=== PATIENT | female | born 1935 | race Caucasian/White ===

== ENCOUNTER 2023-11-09 07:26 | Outpatient (RCR) | payer MEDICARE, SELFPAY ==
[2023-10-26 10:15] VITALS: BMI 26.9
== END 2023-12-23 12:57 | disposition home or self-care (01) ==
LOC: ANHWOC 07:26
PROVIDERS: PCP Physician Assistant Medical; Visit Provider Physician Assistant Medical
DX: L97.929 Non-pressure chronic ulcer of unspecified part of left lower leg with unspecified severity (principal); L03.116 Cellulitis of left lower limb
CPT/HCPCS: 99213; 99214; G0463

== ENCOUNTER 2024-07-19 15:13 | Outpatient (CLI) | payer MEDICARE, SELFPAY ==
[2024-07-19 15:59] LABS: Hematocrit 25.6 % (37.0-47.0); Hemoglobin 7.9 g/dL (12.0-15.0); Mean Corpuscular HGB Conc 30.9 g/dl (32-36); Mean Corpuscular Hemoglobin 31.2 pg (26-34); Mean Corpuscular Volume 101.2 fl (80-100); Mean Platelet Volume 11.2 fl (7.4-10.4); Platelet Count Result 177 k/mm3 (150-375); Red Blood Count 2.53 M/mm3 (4.2-5.4); Red Cell Distribution Width 19.6 % (11.5-14.5); White Blood Count 6.1 K/mm3 (4.5-10.0)
[2024-07-19 16:21] LABS: INR 1.7; Prothrombin Time 19.4 Seconds (11.1-14.7)
[2024-07-19 16:27] LABS: Alanine Aminotransferase 21 U/L (6-35); Albumin Level 2.4 g/dL (3.5-5.1); Alkaline Phosphatase 342 U/L (38-126); Anion Gap 8 mmol/L (4-12); Aspartate Amino Transferase 49 U/L (14-36); Bilirubin,Total 0.9 mg/dL (0.2-1.3); Blood Urea Nitrogen 25 mg/dL (7-17); Calcium 8.3 mg/dL (8.4-10.2); Carbon Dioxide 15 mmol/L (22-30); Chloride 118 mmol/L (98-107); Estimated Glomerular Filt Rate 20; Glucose 92 mg/dL (65-110); Potassium 4.4 mmol/L (3.4-5.0); Sodium 141 mmol/L (137-145); Total Protein 7.6 g/dL (6.3-8.2)
--- OUTSIDE RECORDS SUMMARY | 2024-07-19 16:40 | XMS_ITS | Clinical Summary ---
Author Organization [facility] Address [address] [place] [address] Care Team Providers Care Chef De Cuisine Name Role Phone Vannessa Swann Primary Care Provider [phone] Source Comments [facility],non-owned Affiliates and Associated Physician Practices is amultiple site organization consisting of ambulatory clinics and hospital sitesin [place], [place], [place] and [place]. This disclosure is being madepursuant to the Care Everywhere program and may not contain all information available regarding this patient. Last updated 17.[facility] Allergies Active Allergy Reactions Criticality Noted Date Comments Lisinopril Cough 12/15/2023 Medications * Be aware that medications may not be up to date on this document. Alwaysverify current medications with the patient. furosemide (Lasix) 80 MG tablet TAKE 1 TABLET(80 MG) BY MOUTH DAILY 09/09/2021 Active potassium chloride ER (Micro-K) 10 MEQ capsule Take 2 (two) capsules by mouth 2 times daily 12/09/2021 Active losartan (Cozaar) 25 MG tablet Take 1 (one) tablet by mouth once daily Active pantoprazole EC (Protonix) 40 MG tablet Take 1 (one) tablet by mouth every morning 06/02/2022 Active ferrous sulfate 325 (65 FE) MG tablet Take 1 (one) tablet by mouth once daily 02/09/2022 Active Aspirin Low Dose 81 MG tablet Take 1 (one) tablet by mouth once daily 05/06/2022 Active predniSONE (Deltasone) 10 MG tablet TAKE 1 TABLET BY MOUTH DAILY NEEDED FOR ALLERGY SYMPTOMS 10/25/2021 Active Probiotic Product (Acidophilus/Go at Milk) CAPS Take 1 capsule by mouth once daily Active cetirizine (ZyrTEC) 10 MG tablet Take 1 (one) tablet by mouth once daily Active alendronate (Fosamax) 70 MG tablet Take 1 (one) tablet by mouth every 7 days before meal Take in morning with full glass of water on empty stomach and remain upright for 30 min Active sotalol (Betapace) 80 MG tablet Take 0.5 (one-half) tablet by mouth 2 times daily Active calcium carbonate-vitam in D 600-400 MG-UNIT tablet Take 1 (one) tablet by mouth 2 times daily with morning and evening meal Active Active Problems Problem Noted Date Diagnosed Date GIB (gastrointestinal bleeding) 02/06/2022 07/17/2022 Leg edema 08/05/2021 07/17/2022 Atrial fibrillation with rapid ventricular respo nse 07/01/2021 07/17/2022 Family History Medical History Relation Name Comments Heart Failure Mother Relation Name Status Comments Father Mother Social History Tobacco Use Types Packs/Day Years Used Date Smoking Tobacco: Never Smokeless Tobacco: Never Tobacco Cessation:Counseling Given: Not Answered Alcohol Use Standard Drinks/Week Comments Never 0 (1 standard drink = 0.6 oz pur e alcohol) Comments Unknown Sex and Gender Information Value Date Recorded Sex Assigned at Not on file Legal Sex Female 8:35 AM CDT Gender Identity Not on file Sexual Orientation Not on file Last Filed Vital Signs Vital Sign Reading Time Taken Comments Blood Pressure 128/90 12/15/2023 11:15 AM COMMUNICATIONS SUPERVISOR Pulse 81 12/15/2023 11:15 AM COMMUNICATIONS SUPERVISOR Temperature 35.9 C (96.7 F) 07/17/2022 11:31 AM CDT Respiratory Rate 18 07/17/2022 11:3 1 AM CDT Oxygen Saturation 100% 12/15/2023 11: 15 AM COMMUNICATIONS SUPERVISOR Inhaled Oxygen Concentration - - Weight 64.8 kg (142 lb 12.8 oz) 024 11:15 AM COMMUNICATIONS SUPERVISOR Height 154.9 cm (5' 1) 07/17/2022 11:3 1 AM CDT Body Mass Index 26.98 07/17/2022 11:31 AM CDT Plan of Treatment Upcoming Encounters Date Type Department Care Team (Late st Contact Info) Description 12/13/2024 11:00 AM COMMUNICATIONS SUPERVISOR [facility] [place] [address] [facility] [place] [address] Suresh Mendez MD [address] [place] [address] Health Maintenance Due Date Last Done Comments MEDICARE AWV 12 MONTHS 1935 DTAP/TDAP/TD VACCINES (1 - Tdap) 1954 PNEUMOCOCCAL VACCINE 50+ (1 of 1 - PCV) 1985 ZOSTER VACCINE (1 of 2) 1985 Respiratory Syncytial Virus (RSV) Vaccine Pt: or over 60 yrs (1 - 1-dose 75+ series) 2010 COVID-19 VACCINE ( - 2023-2 5 season) 2023 DEPRESSION SCREENING 02/10/2024 INFLUENZA VACCINE (Season Ended) 2024 BONE DENSITY TESTING Completed 08/25/2023, 05/22/2022 HEPATITIS B VACCINE Aged Out No longe r eligible based on patient's age to complete this topic HIB VACCINE Aged Out No longer eligi ble based on patient's age to complete this topic HPV VACCINE Aged Out No longer eligi ble based on patient's age to complete this topic MENINGOCOCCAL (Group B) VACCINE SHARED DECISION-MAKING Aged Out No longer eligible based on patient's age to complete this topic MENINGOCOCCAL GROUPS A/C/Y/W VACCINE Aged Out No longer eligible b ased on patient's age to complete this topic Goals Goal Patient Goal Type Associated Problems Recent Progress Patient-Stated? Author Medication Management General On track( 024 11:15 AM COMMUNICATIONS SUPERVISOR) Tran Galvez, RN Note: Expected end date: ongoing Interventions: Take all medications as prescribed Let your doctor know right away about any changes in your medications Make sure to request a refill of your medication at least one week prior to your last dose Insurance MEDICARE AETNA MEDICARE AETNA Care Teams Chef De Cuisine Relationship Specialty Start Date End Date Vannessa Swann PA [address] [place] [phone] PCP - General Physician Electroless Plater 07/17/22
--- OUTSIDE RECORDS SUMMARY | 2024-07-19 16:40 | XMS_ITS | Clinical Summary ---
Author Organization [facility] Address [address] [facility] [place] [address] Care Team Providers Care Clinical Trial Coordinator Name Role Phone Unavailable Primary Care Provider Unavailabl e Social History Tobacco Use Types Packs/Day Years Used Date Smoking Tobacco: Never Assessed Comments Unknown Sex and Gender Information Value Date Recorded Sex Assigned at Not on file Legal Sex Female 3:12 PM CDT Gender Identity Not on file Sexual Orientation Not on file Plan of Treatment Upcoming Encounters Date Type Department Care Team (Late st Contact Info) Description 07/26/2024 4:00 PM CDT Office Visit [facility] Oncology and Hematology - [place] [address] [facility] [address] [address] Daljit King MD [address] [facility] [address] [place] [address] Health Maintenance Due Date Last Done Comments DTAP/TDAP/TD VACCINES (1 - Tdap) 1954 PNEUMOCOCCAL VACCINE 50+ YEARS (1 of 1 - PCV) 01/12/19 85 ZOSTER VACCINE (1 of 2) 1985 OSTEOPOROSIS SCREENING 01/13/2000 RSV VACCINE (60+ or ) (1 - 1-dose 75+ series) 2010 INFLUENZA VACCINE (#1) 2023 Insurance MEDICARE PART A AND B AETNA MEDICARE SUPP AESSI
[2024-07-19 16:50] LABS: Iron 92 ug/dL (37-170)
[2024-07-19 17:09] LABS: Percent Iron Saturation 54 % (20-50)
[2024-07-19 17:24] LABS: Hepatitis B Surface Antigen Negative (Negative)
[2024-07-19 17:30] LABS: HAV RESULT Negative (Negative); Hepatitis B Core IgM Result Negative (Negative)
[2024-07-19 17:30] LABS: Total Protein Urine Random 8 mg/dL
[2024-07-19 17:41] LABS: Hepatitis C Virus Antibody Negative (Negative)
[2024-07-20 05:44] LABS: GGT 63 U/L (3-65)
[2024-07-20 22:04] LABS: Ceruloplasmin 21 mg/dL (14-48)
[2024-07-22 12:29] LABS: Anti Nuclear Antibody Pattern Nuclear, Speckled
== END 2024-07-19 15:14 | disposition home or self-care (01) ==
LOC: ANHLAB 15:16
PROVIDERS: PCP Physician Assistant Medical; Visit Provider Nurse Practitioner Family
DX: R74.8 Abnormal levels of other serum enzymes (principal); K74.00 Hepatic fibrosis, unspecified; E88.09 Other disorders of plasma-protein metabolism, not elsewhere classified; K74.60 Unspecified cirrhosis of liver
CPT/HCPCS: 36415; 80053; 80074; 81050; 82390; 82728; 82977; 83520; 83540; 83550; 84156; 85027; 85610; 86038; 86364; 86376

== ENCOUNTER 2024-07-28 08:31 | Inpatient (IN) | payer MEDICARE, SELFPAY ==
[2024-07-28] VITALS (9 sets, daily range): BP systolic 63–95; BP diastolic 28–68; PULSE 41–51; RESP 12–22; TEMP 33.1–34.6; O2SAT 90–95; BMI 30.4
--- NOTE | ~2024-07-28 | XR_ITS ---
XR chest 1V portable Ordering provider: Antelmo Dubon III DO History: 89 years Female with . cough . Comparison: None. FINDINGS: MEDIASTINUM: The cardiac silhouette is slightly enlarged. Congestive jazmine. LUNGS: No pneumothorax. Opacification and the right lower lobe with right pleural effusion. OTHER: No free air under the diaphragm. IMPRESSION: Right basilar atelectasis versus pneumonia with pleural effusion. Reviewed, dictated and finalized at location A.
--- NOTE | ~2024-07-28 | CT_ITS ---
Clinical Indication: Acute renal insufficiency, UTI CT Scan of the Chest, Abdomen, and Pelvis without Contrast: Technique: Contiguous sections were acquired throughout the chest, abdomen, and pelvis without IV con trast administration. Dose reduction technique was used on this scan by utilizing automated exposure control and iterative reconstruction technique. The dose-length product (DLP) was 1252.53 mGy-cm. Findings: There is no evidence of any significant mediastinal, hilar or axillary lymphadenopathy. Left atrial a ppendage closure device present. No pericardial effusion. Moderate to large right pleural effusion present with near complete right lower lobe atelectasis. Und erlying pneumonia not completely excluded. Left lung clear aside from minimal dependent atelectatic c hanges. No left pleural effusion. The liver is small with severely nodular contour/morphology, compatible with advanced cirrhosis. No f ocal hepatic mass or ventricular dilatation seen. Probable cholecystectomy clips. The spleen, pancrea s, gallbladder, right adrenal gland, and kidneys are within normal limits. Probable 11 mm left adrena l nodule, statistically most likely adenoma. No evidence of aortic aneurysm. No lymphadenopathy. No bowel obstruction or bowel wall thickening. Moderate abdominopelvic ascites present. Urinary bladder is collapsed around a Simental catheter. No pelvic mass evident. Diffuse soft tissue davin sarca changes are present. Impression: Moderate to large right pleural effusion with near complete right lower lobe atelectasis. Correlate f or concomitant pneumonia. Advanced cirrhotic change of the liver. Associated moderate abdominopelvic ascites and diffuse soft t issue anasarca changes. 11 mm left adrenal nodule, statistically most likely adenoma. Consider follow-up MR to attempt to con firm this diagnosis, as indicated. Reviewed, dictated and finalized at location . Impression: Moderate to large right pleural effusion with near complete right lower lobe at electasis. Correlate for concomitant pneumonia. Advanced cirrhotic change of the liver. Associated moderate abdominopelvic asci jackson and diffuse soft tissue anasarca changes. 11 mm left adrenal nodule, statistically most likely adenoma. Consider follow-u p MR to attempt to confirm this diagnosis, as indicated.
--- NOTE | ~2024-07-28 | CT_ITS ---
CT brain wo con Ordering provider: Antelmo Dubon III DO History: 89 years Female with . altered mental status . Comparison: None. Technique: CT of the head without contrast. Radiation reduction technique utilized.The dose-length pr oduct was 529.67 mGy-cm. FINDINGS: BRAIN PARENCHYMA AND CSF SPACES: Mild leukoaraiosis and diffuse cortical atrophy. Mild atheromatous d isease. No midline shift, mass effect or hemorrhage. The brain parenchyma and CSF spaces are otherwi se normal. VISUALIZED PARANASAL SINUSES: Well aerated. MASTOIDS: Well aerated. BONES: The bones appear intact. SOFT TISSUES: Visualized nasopharynx is normal. Superficial soft tissues are normal. IMPRESSION: No acute intracranial findings. Reviewed, dictated and finalized at location A.
--- OUTSIDE RECORDS SUMMARY | 2024-07-28 08:42 | XMS_ITS | Clinical Summary ---
Author Organization [facility] Address [address] [facility] [place] [address] Care Team Providers Care Seo Strategist Name Role Phone Unavailable Primary Care Provider Unavailabl e Allergies Active Allergy Reactions Criticality Noted Date Comments Lisinopril Cough Low 05/02/2022 Medications sucralfate (CARAFATE) 1 gram tablet 07/21/2024 Active sotaloL (BETAPACE) 80 mg tablet TAKE 1/2 TABLET(40 MG) BY MOUTH TWICE DAILY 04/25/2024 Active phenyleph-min oil-petrolatum (Preparation H) 0.25-14-74.9 % Ointment Insert by rectum 3 times daily as needed for Itching. Active potassium CHLORIDE (K-DUR,KLOR-CON M20) 20 mEq Extended Release tablet 07/21/2024 Active pantoprazole (PROTONIX) 40 mg Tablet, Delayed Release (E.C.) Take 40 mg by mouth daily. 02/09/2022 Active lactulose (ENULOSE) 10 gram/15 mL oral solution 07/21/2024 Active furosemide (LASIX) 20 mg tablet 07/21/2024 Active ferrous sulfate 325 mg (65 mg iron) tablet Take 325 mg by mouth daily. 02/09/2022 Active cetirizine (ZyrTEC) 10 mg tablet Take 10 mg by mouth daily. Active calcium CARBONATE + vitamin D (CALTRATE+D) 600 mg-10 mcg (400 unit) Tablet Take 1 Tablet by mouth daily. Active alendronate (FOSAMAX) 70 mg tablet Take 70 mg by mouth every 7 days. 05/28/2023 Active Active Problems No known active problems Encounters Date Type Department Care Team Description 07/26/2024 4:00 PM CDT Office Visit [facility] Oncology and Hematology - [place] [address] [place] [address] Daljit King MD Chronic anemia (Primary Dx) from Last 3 Months Family History Medical History Relation Name Comments No Known Problems Brother Diabetes Child 1 Heart Disease Child 1 No Known Problems Child 2 No Known Problems Child 3 Heart Disease Father Cancer Mother Diabetes Mother Heart Disease Mother Relation Name Status Comments Brother Child 1 Alive Child 2 Alive Child 3 Alive Father Mother Social History Tobacco Use Types Packs/Day Years Used Date Smoking Tobacco: Never Smokeless Tobacco: Never Alcohol Use Standard Drinks/Week Comments Never 0 (1 standard drink = 0.6 oz pur e alcohol) Comments Unknown Sex and Gender Information Value Date Recorded Sex Assigned at Not on file Legal Sex Female 3:12 PM CDT Gender Identity Not on file Sexual Orientation Not on file Last Filed Vital Signs Vital Sign Reading Time Taken Comments Blood Pressure 95/54 07/26/2024 3:43 PM CDT Pulse 50 07/26/2024 3:43 PM CDT Temperature 36 C (96.8 F) 07/26/2024 3:43 PM CDT Respiratory Rate 15 07/26/2024 3:43 PM CDT Oxygen Saturation 83% 07/26/2024 3:43 PM CDT Inhaled Oxygen Concentration - - Weight 72.7 kg (160 lb 3.2 oz) 07/26/2024 3:43 P M CDT Height 154.9 cm (5' 1) 07/26/2024 3:43 PM CDT Body Mass Index 30.27 07/26/2024 3:43 PM CDT Plan of Treatment Upcoming Encounters Date Type Department Care Team (Late st Contact Info) Description 08/31/2024 2:00 PM CDT Office Visit [facility] Oncology and Hematology - [place] [address] [place] [address] Daljit King MD [address] [facility] [address] [place] [address] Health Maintenance Due Date Last Done Comments DTAP/TDAP/TD VACCINES (1 - Tdap) 1954 Traditional Medicare (ACO) A nnual Wellness Visit 1954 PNEUMOCOCCAL VACCINE 50+ YEA RS (1 of 1 - PCV) 1985 ZOSTER VACCINE (1 of 2) 1985 RSV VACCINE (60+ or ) (1 - 1-dose 75+ series) 2010 INFLUENZA VACCINE (#1) 2023 OSTEOPOROSIS SCREENING 08/24/2028 08/25/2023, 2022 Insurance MEDICARE PART A AND B AETNA MEDICARE SUPP AESSI
--- OUTSIDE RECORDS SUMMARY | 2024-07-28 08:42 | XMS_ITS | Clinical Summary ---
Author Organization [facility] Address [address] [facility] [place] [address] Care Team Providers Care Shoe Stitcher Odd Name Role Phone Vannessa Swann Primary Care Provider [phone] Source Comments [facility],non-owned Affiliates and Associated Physician Practices is amultiple site organization consisting of ambulatory clinics and hospital sitesin [place], [place], [place] and [place]. This disclosure is being madepursuant to the Care Everywhere program and may not contain all information available regarding this patient. Last updated 17.[facility] Allergies Active Allergy Reactions Criticality Noted Date [...] Comments Blood Pressure 128/90 12/15/2023 11:15 AM CANAL TENDER Pulse 81 12/15/2023 11:15 AM CANAL TENDER Temperature 35.9 C (96.7 F) 07/17/2022 11:31 AM CDT Respiratory Rate 18 07/17/2022 11:3 1 AM CDT Oxygen Saturation 100% 12/15/2023 11: 15 AM CANAL TENDER Inhaled Oxygen Concentration - - Weight 64.8 kg (142 lb 12.8 oz) 024 11:15 AM CANAL TENDER Height 154.9 cm (5' 1) 07/17/2022 11:3 1 AM CDT Body Mass Index 26.98 07/17/2022 11:31 AM CDT Plan of Treatment Upcoming Encounters Date Type Department Care Team (Late st Contact Info) Description 12/13/2024 11:00 AM CANAL TENDER Office Visit [facility] [place] [address] [facility] [place] [address] Suresh Mendez MD [address] [place] [address] Health Maintenance Due Date Last Done Comments [...] Management General On track( 024 11:15 AM CANAL TENDER) Tran Galvez, RN Note: Expected end date: ongoing Interventions: Take all medications as prescribed Let your doctor know right away about any changes in your medications Make sure to request a refill of your medication at least one week prior to your last dose Insurance MEDICARE AETNA MEDICARE AETNA Care Teams Shoe Stitcher Odd Relationship Specialty Start Date End Date Vannessa Swann PA [address] [place] [phone] PCP - General Physician Restorative Rehab Aide 07/17/22
--- NOTE | 2024-07-28 08:52 | ECG_ITS ---
Test Date: 2024-07-28 09:18:34 Measurements Intervals [place] Rate: 41 P: 52 ND: 197 QRS: 77 QRSD: 153 T: 10 QT: 548 QTc: 453 Interpretive Statements SINUS BRADYCARDIA BORDERLINE AV CONDUCTION DELAY RIGHT BUNDLE BRANCH BLOCK LOW VOLTAGE IN DIFFUSE LEADS BASELINE ARTIFACT- I, II, III, AVR, AVF, V1 ABNORMAL ECG No previous ECG available for comparison Electronically Signed On 07-28-2024 09:31:03 CDT by César Ordaz D.O.
--- OUTSIDE RECORDS SUMMARY | 2024-07-28 09:06 | XMS_ITS | Clinical Summary ---
Author Organization [facility]arnell Address [address] [facility] [place] [address] Care Team Providers Care Examiner Of Currency Name Role Phone Unavailable Primary Care Provider [...] Description 07/26/2024 4:00 PM CDT Office Visit [facility] Oncology and Hematology - [place] [address] [place] [address] Daljit King MD Chronic anemia [...] Description 08/31/2024 2:00 PM CDT Office Visit [facility] Oncology and Hematology - [place] [address] [facility] [address] [place] [address] Daljit King MD [address] [facility] [address] [place] [address] Health Maintenance Due Date Last [...]
--- OUTSIDE RECORDS SUMMARY | 2024-07-28 09:06 | XMS_ITS | Clinical Summary ---
Author Organization [facility] Address [address] [facility] [place] [address] Care Team Providers Care Senior Software Project Manager Name Role Phone Vannessa Swann Primary Care Provider [phone] Source Comments [facility],non-owned Affiliates and Associated Physician Practices is amultiple site organization consisting of ambulatory clinics and hospital sitesin [place], [place], [place] and [place]. This disclosure is being madepursuant to the Care Everywhere program and may not contain all information available regarding this patient. Last updated 17.[facility] Allergies Active Allergy Reactions Criticality Noted Date [...] Comments Blood Pressure 128/90 12/15/2023 11:15 AM COGNOS LEAD Pulse 81 12/15/2023 11:15 AM COGNOS LEAD Temperature 35.9 C (96.7 F) 07/17/2022 11:31 AM CDT Respiratory Rate 18 07/17/2022 11:3 1 AM CDT Oxygen Saturation 100% 12/15/2023 11: 15 AM COGNOS LEAD Inhaled Oxygen Concentration - - Weight 64.8 kg (142 lb 12.8 oz) 024 11:15 AM COGNOS LEAD Height 154.9 cm (5' 1) 07/17/2022 11:3 1 AM CDT Body Mass Index 26.98 07/17/2022 11:31 AM CDT Plan of Treatment Upcoming Encounters Date Type Department Care Team (Late st Contact Info) Description 12/13/2024 11:00 AM COGNOS LEAD Office Visit [facility] [place] [address] [facility] [place] [address] Suresh Mendez MD [address] [place] [phone] Health Maintenance Due Date Last Done Comments [...] Management General On track( 024 11:15 AM COGNOS LEAD) Tran Galvez, RN Note: Expected end date: ongoing Interventions: Take all medications as prescribed Let your doctor know right away about any changes in your medications Make sure to request a refill of your medication at least one week prior to your last dose Insurance MEDICARE AETNA MEDICARE AETNA Care Teams Senior Software Project Manager Relationship Specialty Start Date End Date Vannessa Swann PA [address] [place] [phone] PCP - General Physician Concrete Spreader 07/17/22
--- NOTE | 2024-07-28 09:29 | ED_ITS ---
HPI - General Adult General Chief complaint: Unspecified Stated complaint: ABNORMAL LABS,CONFUSION Time Seen by Provider: 07/28/24 08:41 History of Present Illness HPI narrative: Pt presents with edema to legs and confusion per daughter. Pt had similar episode two weeks ago and was admitted in [facility]. Daughter states she has non alcoholic liver disease and her kidney function has been worsening. Pt has gained 25 lbs due to fluid retentin in abdomen and legs. Daughter said they were to get outpatient CT abd today but her didney function would not allow contrast so they were sent back to assisted living but pt became confused in car so daughter brought her to ER. Related Data Home Medications ?Medication ?Instructions ?Recorded ?Confirmed ?Last Taken ?Type cetirizine 10 mg tablet (Zyrtec) 10 mg PO DAILY PRN Allergy Symptoms 10/25/21 07/19/24 Unknown History sotalol 80 mg tablet (Betapace) 40 mg PO BID 10/25/21 07/19/24 Unknown History calcium 600 mg (as 1 cap PO BID 09/07/23 07/19/24 Unknown History carbonate)-vitamin D3 10 mcg (400 unit) capsule Allergies Allergy/AdvReac Type Severity Reaction Status Date / Time lisinopril AdvReac Intermediate cough Verified 07/28/24 08:38 Review of Systems 2 Review of Systems: All systems reviewed & are unremarkable except as noted in HPI and below PMFSH Past Medical History Medical History Hepatic encephalopathy Thrombocytopenia Rectal bleeding History of arteriovenous malformation (AVM) AVM (arteriovenous malformation) Iron deficiency anemia GAVE (gastric antral vascular ectasia) Abdominal distension Hypoalbuminemia Hepatic fibrosis GERD (gastroesophageal reflux disease) Osteoporosis Chronic heart failure with preserved ejection fraction (HFpEF) 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 Mild aortic stenosis Paroxysmal A-fib HTN (hypertension) Elevated liver enzymes Surgical History Surgical History History of appendectomy History of surgery of liver History of total hysterectomy with bilateral salpingo-oophorectomy (BSO) History of left atrial appendage closure 05/06/22 Family History Family History Mother Cerebrovascular accident Family history of malignant neoplasm of breast in first degree relative Father Acute myocardial infarction Other Diabetes mellitus Hypertension Social History Social History Social History: 04/15/24 somewhat confident with medical forms Smoking status: Never smoker Alcohol intake: never Substance use: never Substance use type: does not use Do You Feel Safe in your Home?: Yes Lack of Transportation: No Lack of Food: Never True Current Housing: I Have Housing Concerned About Future Housing: No Difficulty Paying Gas/Electric Bills: No Difficulty Paying for Meds: No Currently Unemployed: No Education: High School Diploma/GED Difficulty w/ Childcare or Family Care: No Living arrangements: alone Occupation/Education: retired Gender identity (if verbalized by the patient): Female Sexual Orientation (if Verbalized by the Patient): Straight or Heterosexual Spiritual care concerns: No Exam 2 Const: General: cooperative, healthy appearing, comfortable and no acute distress Nutritional Appearance: average body habitus O rientation/consciousness: patient oriented x3 Limitations: no limitations HENMT: Head: normal to inspection Neck: Neck: normal visual inspection, full ROM, no lymphadenopathy and no meningeal signs Resp: Effort & Inspection: normal respiratory effort and able to speak in complete sentences Auscultation: clear to auscultation bilaterally Cardio: Rate: regular rate Rhythm: regular rhythm GI: Inspection: Abdominal wall edema and distended GI Palp: No abdominal tenderness and No Tenderness to palpation present (GI) Skin: Other: edematous bilaterla LE with weeping wounds Neuro: General: patient oriented x3 Cranial nerves: Yes CN's II-XII intact bilaterally Speech: normal speech Motor exam (neuro): 5/5 motor strength present throughout Sensory Exam: normal sensation Extrem: General: edema Psych: Appearance: grossly normal Mental Status: mental status grossly normal Speech and movement: Normal speech and movement present Course Vital Signs Vital signs: Vital Signs Temperature 91.5 F L 07/28/24 09:07 Pulse Rate 41 L 07/28/24 09:07 Respiratory Rate 12 07/28/24 09:07 Blood Pressure 95/68 L 07/28/24 09:07 Pulse Oximetry 90 07/28/24 09:07 Temperature 93.2 F L 07/28/24 14:00 Pulse Rate 47 L 07/28/24 14:00 Respiratory Rate 22 H 07/28/24 14:00 Blood Pressure 63/42 L 07/28/24 14:00 Pulse Oximetry 95 07/28/24 11:45 Oxygen Delivery Nasal Cannula 07/28/24 09:08 Oxygen Flow Rate 4 07/28/24 09:08 Medical Decision Making MDM Narrative Medical decision making narrative: Pt presents with altered mental status this morning. Pt has complex recent medical history with liver disease and renal failure. Pt is grossly edematous to legs and abdomen and is hypothermic. Pt could be septic or in liver or kidney failure or all of the above. will get labs and UA and CT brain. and place in [facility] for temp. Pt HR dropped tpo 30's and then 20's and BP dropped. CMP resul;ts caled and K was 7.1. Pt immediately received Calcium, bicarb, insulin and d50 and HR climbed to 49 and Bp improved to SBP 95. UA positive ordered rocephin. contacted Dr Gomez agrees to admit to ICU. Dr Barreto consulted. Dr Paris notified of admission. Vital Signs Vital Signs: Vital Signs Temperature 91.5 F L 07/28/24 09:07 Pulse Rate 41 L 07/28/24 09:07 Respiratory Rate 12 07/28/24 09:07 Blood Pressure 95/68 L 07/28/24 09:07 Pulse Oximetry 90 07/28/24 09:07 Temperature 93.2 F L 07/28/24 14:00 Pulse Rate 47 L 07/28/24 14:00 Respiratory Rate 22 H 07/28/24 14:00 Blood Pressure 63/42 L 07/28/24 14:00 Pulse Oximetry 95 07/28/24 11:45 Oxygen Delivery Nasal Cannula 07/28/24 09:08 Oxygen Flow Rate 4 07/28/24 09:08 Lab Data 07/28/24 10:16 07/28/24 12:41 Labs: Lab Results 07/28/24 07/28/24 07/28/24 Range/Units 09:17 09:47 10:16 WBC 6.1 (4.5-10.0) K/mm3 RBC 2.31 L (4.2-5.4) M/mm3 Hgb 7.1 L (12.0-15.0) g/dL Hct 23.8 L (37.0-47.0) % MCV 103.0 H (80-100) fl MCH 30.7 (26-34) pg MCHC 29.8 L (32-36) g/dl RDW 21.2 H (11.5-14.5) % Plt Count 94 L (150-375) k/mm3 MPV 11.9 H (7.4-10.4) fl Immature Gran % (Auto) 1.2 H (0-0.5) % Neut % (Auto) 77.8 H (45.5-73.1) % Lymph % (Auto) 13.2 L (18.3-44.2) % [place] % (Auto) 7.6 (2.6-8.5) % Eos % (Auto) 0.2 (0-4.4) % Baso % (Auto) 0.0 L (0.2-1.2) % Lymph # (Auto) 0.80 L (0.9-3.2) K/mm3 [place] # (Auto) 0.5 (0.1-0.6) K/mm3 Eos # (Auto) 0.0 (0-0.3) K/mm3 Baso # (Auto) 0.0 (0.0-0.1) K/mm3 Abs Immat Gran (auto) 0.07 H (0.00-0.031) K/mm3 Absolute Neuts (auto) 4.7 (1.3-6.7) K/mm3 Absolute Nucleated RBC 0.450 H (0.0-0.012) K/mm3 Band Neutrophils % Not Reportable Nucleated RBC % 7.4 H (0.0-0.2) % Platelet Estimate Decreased (Adequate) % Immature Plt Fraction 4.9 (0.9-11.2) % Hypochromasia 1+ Anisocytosis 1+ Macrocytosis 1+ (NORMAL) Ovalocytes 1+ Schistocytes None seen PT 22.3 H (11.1-14.7) Seconds INR 2.0 APTT 43.3 H (22.3-36.8) Seconds Sodium 136 L (137-145) mmol/L Potassium 7.1 H* (3.4-5.0) mmol/L Chloride 121 H (98-107) mmol/L Carbon Dioxide < 5 L (22-30) mmol/L Anion Gap (4-12) mmol/L BUN 40 H D (7-17) mg/dL Creatinine 4.67 H (0.7-1.0) mg/dL Estim Creat Clear Calc 7 ml/min Estimated GFR 9 L (59 - ) Glucose 86 (65-110) mg/dL POC Capillary Glucose 77 (65-105) mg/dl Lactic Acid 3.0 H (0.7-2.0) mmol/L Calcium 8.0 L (8.4-10.2) mg/dL Total Bilirubin 1.3 (0.2-1.3) mg/dL AST 67 H (14-36) U/L ALT 28 (6-35) U/L Alkaline Phosphatase 281 H (38-126) U/L Ammonia < 9 L (9-30) umol/L Total Protein 7.3 (6.3-8.2) g/dL Albumin 2.3 L (3.5-5.1) g/dL Urine Color Dark yellow (Yellow) Urine Appearance Turbid H (Clear) Urine pH 5.0 (5.0-9.0) Ur Specific [place] 1.022 (1.001-1.035) Urine Protein 3+ H (Negative) mg/dL Urine Glucose (UA) Trace H (Negative) mg/dL Urine Ketones Trace H (Negative) mg/dL Ur Blood (Man) Non-hemolyzed trace H (Negative) Urine Nitrate Negative (Negative) Urine Bilirubin 1+ H (Negative) Urine Urobilinogen 1.0 (<2.0) mg/dL Add Ur Microanalysis Reviewed Leukocyte Esterase Rfl 1+ H (Negative) JONEL/UL Urine RBC 11-20 H (0-2) /hpf Urine WBC 21-50 H (0-3) /hpf Ur Squamous Epith Cells Moderate (Few) /hpf Ur Transition Epith Cell Few H (None Seen) /hpf Urine Bacteria Rare /hpf Urine Casts >20 Hyaline Casts Present (None) /lpf Critical Care Time Critical Care Time Critical Care Time: Yes Total Critical Care Time: 40 Discharge Plan Discharge Clinical Impression: Acute renal failure, Acute hyperkalemia, Sepsis, Acute UTI, Metabolic acidosis Patient Disposition: Still a Patient Condition: Critical
[2024-07-28] MEDS: SODIUM CHLORIDE 0.9% IV 500 ML 999 ML IV CONT ×2 (09:31→10:11)
[2024-07-28 09:39] LABS: Prothrombin Time 22.3 Seconds (11.1-14.7)
[2024-07-28 09:40] LABS: Partial Thromboplastin Time 43.3 Seconds (22.3-36.8)
[2024-07-28 09:59] LABS: Add Urine Microscopic? YES; Appearance Urine Turbid (Clear); Bacteria Urine Rare /hpf; Bilirubin Urine 1+ (Negative); Blood Urine Non-Hemolyzed Trace (Negative); Color Urine Dark Yellow (Yellow); Glucose Urine UA Trace mg/dL (Negative); Hyaline Casts Urine Present /lpf; Ketones Urine Trace mg/dL (Negative); Leukocyte Esterase Ur 1+ LEU/UL (Negative); Need Manual Microscopic Reviewed; Nitrate Urine Negative (Negative); Non Pathogenic Casts >20; Protein Urine 3+ mg/dL (Negative); Specific Grav Ur 1.022 (1.001-1.035); Squamous Epithelial Cell Urine Moderate /hpf (Few); WBC Urine 21-50 /hpf (0-3)
--- NOTE | 2024-07-28 10:05 | ECG_ITS ---
Test Date: 2024-07-28 10:08:33 Measurements Intervals [place] Rate: 38 P: 37 MT: 202 QRS: 92 QRSD: 158 T: 10 QT: 672 QTc: 540 Interpretive Statements SLOW SINUS BRADYCARDIA WITH OCCASIONAL SUPRAVENTRICULAR PREMATURE COMPLEXES BORDERLINE AV CONDUCTION DELAY RIGHT BUNDLE BRANCH BLOCK LOW VOLTAGE IN DIFFUSE LEADS ABNORMAL ECG Compared to ECG 07/28/2024 09:18:34 NO SIGNIFICANT CHANGE Electronically Signed On 07-28-2024 10:14:28 CDT by César Ordaz D.O.
[2024-07-28 10:08] LABS: Ammonia < 9 umol/L (9-30)
[2024-07-28 10:11] LABS: Alanine Aminotransferase 28 U/L (6-35); Albumin Level 2.3 g/dL (3.5-5.1); Alkaline Phosphatase 281 U/L (38-126); Aspartate Amino Transferase 67 U/L (14-36); Bilirubin,Total 1.3 mg/dL (0.2-1.3); Blood Urea Nitrogen 40 mg/dL (7-17); Carbon Dioxide < 5 mmol/L (22-30); Chloride 121 mmol/L (98-107); Estimated CRCL calculation 7 ml/min; Estimated Glomerular Filt Rate 9; Glucose 86 mg/dL (65-110); Potassium 7.1 mmol/L (3.4-5.0); Sodium 136 mmol/L (137-145); Total Protein 7.3 g/dL (6.3-8.2)
[2024-07-28 10:19] LABS: Glucose Point of Care 77 mg/dl (65-105)
[2024-07-28] MEDS: INSULIN HUMAN REGULAR (*BKC) 100 UNITS/ML 7 UNITS IV PUSH (10:22)
[2024-07-28] MEDS: SODIUM BICARBONATE 8.4% 50 MEQ/50 ML SYRINGE IV PUSH (10:22)
[2024-07-28] MEDS: DEXTROSE 50% 25 GM/50 ML SYRINGE IV PUSH (10:22)
[2024-07-28] MEDS: ATROPINE SULFATE 1 MG/10 ML SYRINGE IV PUSH (10:25)
--- NOTE | 2024-07-28 10:26 | PC.NURSE ---
EDP at bedside w/ verbal orders and meds were administered. Code called in preperation for pt due to condition. Resp responded and is at bedside, preparing for intubation. EDP Dr Dubon currently talking to family. Pt is alert.
[2024-07-28 10:28] LABS: Eosinophils Percent Auto 0.2 % (0-4.4); Hematocrit 23.8 % (37.0-47.0); Hemoglobin 7.1 g/dL (12.0-15.0); Immature Granulocyte Absolute 0.07 K/mm3 (0.00-0.031); Immature Granulocyte Percent A 1.2 % (0-0.5); Immature Platelet Fraction Pct 4.9 % (0.9-11.2); Lymphocytes Percent Auto 13.2 % (18.3-44.2); Mean Corpuscular HGB Conc 29.8 g/dl (32-36); Mean Corpuscular Hemoglobin 30.7 pg (26-34); Mean Platelet Volume 11.9 fl (7.4-10.4); Monocytes Absolute Auto 0.5 K/mm3 (0.1-0.6); Monocytes Percent Auto 7.6 % (2.6-8.5); Neutrophils Absolute Auto 4.7 K/mm3 (1.3-6.7); Neutrophils Percent Auto 77.8 % (45.5-73.1); Nucleated Red Blood Cells Perc 7.4 % (0.0-0.2); Platelet Count Result 94 k/mm3 (150-375); Red Blood Count 2.31 M/mm3 (4.2-5.4); Red Cell Distribution Width 21.2 % (11.5-14.5); White Blood Count 6.1 K/mm3 (4.5-10.0)
[2024-07-28 10:28] LABS: Transitional Epi Cells Urine Few /hpf (None Seen)
--- NOTE | 2024-07-28 10:28 | PC.NURSE ---
EDP Dr Dubon discussed pt condition with family who verbalized wishes of pt being a DNR. Team at bedside notified. Nurses at bedside and will continue to monitor patient.
[2024-07-28] MEDS: CALCIUM CHLORIDE 1,000 MG/10 ML SYRINGE 1000 MG IV PUSH (10:32)
--- NOTE | 2024-07-28 10:32 | PC.NURSE ---
Family at bedside at this time.
--- NOTE | 2024-07-28 10:36 | ECG_ITS ---
Test Date: 2024-07-28 10:38:34 Measurements Intervals [place] Rate: 49 P: -18 NH: 136 QRS: 92 QRSD: 145 T: 11 QT: 504 QTc: 459 Interpretive Statements SINUS BRADYCARDIA RIGHT BUNDLE BRANCH BLOCK ABNORMAL ECG Compared to ECG 07/28/2024 10:08:33 HEART RATE HAS INCREASED Electronically Signed On 07-28-2024 10:57:41 CDT by César Ordaz D.O.
[2024-07-28 10:47] LABS: Anisocytosis 1+; Hypochromasia 1+; Macrocytosis 1+ (NORMAL); Ovalocytes 1+; Platelet Estimate Decreased (Adequate); Schistocytes None Seen
--- NOTE | 2024-07-28 11:16 | PCCCNOTE ---
Called to the ED via code blue. Pt at this time was unconscious with the medical team at her side. With the ED doctor spoke to the family who was visibly upset. Stated the pt is a DNR and is following her wishes. Provider shortly returned stating the pt was breathing on her own and invited family to her bedside. Daughter whom is the POA was outreaching their lutheran contact and further family. Noted the pt is a resident at [facility] and today they had picked her to to get a CT scan. Stated they wouldn't do it because her labs were not good. ED provider updated.--henna
[2024-07-28] MEDS: cefTRIAXone 2 GM/NS 100 ML 2 GM/100 ML BAG IVPB (11:41)
[2024-07-28] MEDS: SODIUM ZIRCONIUM CYCLOSILICATE 10 GM POWD.PACK PO (11:42)
[2024-07-28 11:56] LABS: Reflex Lactic Acid Yes or No Add Lactic
--- NOTE | 2024-07-28 11:59 | WPDCNINT ---
Assessment and Plan Assessment and plan (1) Chronic heart failure with preserved ejection fraction (HFpEF): Code(s): I50.32 - Chronic diastolic (congestive) heart failure Status: Acute (2) Paroxysmal A-fib: Code(s): I48.0 - Paroxysmal atrial fibrillation Status: Acute (3) Thrombocytopenia: Code(s): D69.6 - Thrombocytopenia, unspecified Status: Acute (4) GERD (gastroesophageal reflux disease): Code(s): K21.9 - Gastro-esophageal reflux disease without esophagitis Status: Acute (5) Acute renal failure: Code(s): N17.9 - Acute kidney failure, unspecified Status: Acute (6) Metabolic acidosis: Code(s): E87.20 - Acidosis, unspecified Status: Acute (7) Acute hyperkalemia: Code(s): E87.5 - Hyperkalemia Status: Acute (8) Acute UTI: Code(s): N39.0 - Urinary tract infection, site not specified Status: Acute (9) Anemia: Code(s): D64.9 - Anemia, unspecified Status: Acute (10) Sepsis: Code(s): A41.9 - Sepsis, unspecified organism Status: Acute (11) UTI (urinary tract infection): Code(s): N39.0 - Urinary tract infection, site not specified Status: Acute (12) Hyponatremia: Code(s): E87.1 - Hypo-osmolality and hyponatremia Status: Acute (13) Hypoxia: Code(s): R09.02 - Hypoxemia Status: Acute Plan I evaluated obtained history and examined the patient. I reviewed Radiology labs and past records. Reviewed events from the ER I had long meeting with patient's 3 children to son and 1 daughter and we went over patient's hospital stay in [place] and her course at the assisted living and custodial for last 4-5 weeks. They were aware that patient had been gradually deteriorate getting more weak with increased swelling and more confusion. I discussed findings of testing and results that were done at [facility] including CT scan results, worsening renal function, hyperkalemia, anasarca, right pleural effusion and ascites and underlying medical problems including cirrhosis with hepatic encephalopathy, AFib. We discussed goals of care including code status treatment options, expected prognosis and different potential outcomes. Patient is DNR DNI. We also discussed options of comfort care, hospice. They were all in agreement the patient would not want aggressive invasive supportive care considering most of her medical problems are incurable. As per children patient had lived a active heavy live on a form and now she was in a facility and they also do not believe she will ever go back to her lifestyle. They went to discuss with the patient and after discussing with the patient they and patient have decided to proceed with comfort care and hospice. I have explained them that I will use opioids, anxiolytics and other agents on as needed basis to promote comfort and discontinue all medical therapy, lab testing and invasive monitoring. Patient will eventually . They have verbalized understanding agreed to proceed. change control coordinator at this time is coordinating and trying to arrange hospice care at the facility the patient is currently in. 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 She was recently admitted at [facility] on June 23 for altered mental status pneumonia ALMITA and GI bleed. Patient was transfuse with that time. She had EGD in 2024 which showed gastritis and small gastric varices without bleeding and currently on sotalol. She also has chronic kidney disease was brought to [facility] by her daughter due to confusion. Patient was supposed to get CT scan of abdomen but on the lab work and was found to be having elevated creatinine and on her way back she got confused and was brought to [facility] ER for evaluation. Workup in the ER showed hyperkalemia with potassium of 7.1. She was also bradycardic. She received 500 mL fluid bolus, 1 amp of bicarb, calcium, 7 units of insulin, 1 amp of D50 please intervention led to improvement in the heart rate. WBC 6.1 hemoglobin 7.1 platelets 94 INR 2.0 bicarb less than 5 creatinine 4.67 lactic 3.0 calcium 8 albumin 2.3. UA was suggestive of UTI Chest x-ray showed right pleural effusion As per chart review patient has chronic diastolic congestive heart failure with EF 55-60% [id number] aortic stenosis and [id number] MR and TR. She is on sotalol for rate/rhythm control and chronic diuretics Patient is confused and poor historian and most of the history was obtained from patient's family. Patient apparently was discharged from [facility] 5 weeks ago went to rehab and then to another facility. She has been gradually deteriorating and getting more weak with less active. Leg swelling has been getting worse as per daughter. Poor appetite. Today patient was scheduled for a CT scan with IV contrast as they were not able to the CT scan when they were going home patient was confused and talking inappropriately hence daughter brought her to the hospital. Patient denies any pain but states that she does have shortness of breath. She also reports cough but unable to cough up anything. She denies fever. She does admit to dark stools and hematuria. He denies any fever chest pain. She does admit to nausea but no vomiting. No abdominal pain. She does feel weak and tired. She is confused and a poor historian. Full review of system is not obtainable. CT chest abdomen pelvis without contrast showed Moderate to large right pleural effusion with near complete right lower lobe atelectasis. Correlate for concomitant pneumonia. Advanced cirrhotic change of the liver. Associated moderate abdominopelvic ascites and diffuse soft tissue anasarca changes. 11 mm left adrenal nodule, statistically most likely adenoma. Consider follow-up MR to attempt to confirm this diagnosis, as indicated. Review of Systems Review of Systems: All systems reviewed & are unremarkable except as noted in HPI and below (HPI) [facility] Past Medical History Medical History Hepatic encephalopathy Thrombocytopenia Rectal bleeding History of arteriovenous malformation (AVM) AVM (arteriovenous malformation) Iron deficiency anemia GAVE (gastric antral vascular ectasia) Abdominal distension Hypoalbuminemia Hepatic fibrosis GERD (gastroesophageal reflux disease) Osteoporosis Chronic heart failure with preserved ejection fraction (HFpEF) Dr. Floyd, program director/traffic director Mild aortic stenosis Paroxysmal A-fib HTN (hypertension) Elevated liver enzymes Surgical History Surgical History History of appendectomy History of surgery of liver History of total hysterectomy with bilateral salpingo-oophorectomy (BSO) History of left atrial appendage closure 05/06/22 Family History Family History Mother Cerebrovascular accident Family history of malignant neoplasm of breast in first degree relative Father Acute myocardial infarction Other Diabetes mellitus Hypertension Social History Social History Social History: 04/15/24 somewhat confident with medical forms Smoking status: Never smoker Alcohol intake: never Substance use: never Substance use type: does not use Do You Feel Safe in your Home?: Yes Lack of Transportation: No Lack of Food: Never True Current Housing: I Have Housing Concerned About Future Housing: No Difficulty Paying Gas/Electric Bills: No Difficulty Paying for Meds: No Currently Unemployed: No Education: High School Diploma/GED Difficulty w/ Childcare or Family Care: No Living arrangements: alone Occupation/Education: retired Gender identity (if verbalized by the patient): Female Sexual Orientation (if Verbalized by the Patient): Straight or Heterosexual Meds Home Medications and Allergies Home Medications ?Medication ?Instructions ?Recorded ?Confirmed ?Type cetirizine 10 mg tablet (Zyrtec) 10 mg PO DAILY PRN Allergy Symptoms 10/25/21 07/19/24 History sotalol 80 mg tablet (Betapace) 40 mg PO BID 10/25/21 07/19/24 History potassium chloride 10 mEq 20 meq (2 x 10 mEq) PO BID #360 03/17/22 07/19/24 Rx tablet,extended release tabs prednisone 10 mg tablet 10 mg PO DAILY PRN allergy 06/22/23 07/19/24 Rx symptoms #30 tabs calcium 600 mg (as 1 cap PO BID 09/07/23 07/19/24 History carbonate)-vitamin D3 10 mcg (400 unit) capsule mupirocin 2 % topical ointment 1 applic topical BID #22 grams 10/21/23 07/19/24 Rx alendronate 70 mg tablet (Fosamax) 70 mg PO WEEKLY #12 tabs 02/11/24 07/19/24 Rx losartan 25 mg tablet 25 mg PO DAILY #90 tabs 02/11/24 07/19/24 Rx ferrous sulfate 325 mg (65 mg 325 mg PO DAILY #90 tabs 03/15/24 07/19/24 Rx iron) tablet (FeroSul) pantoprazole 40 mg tablet,delayed 40 mg PO QAM #90 tabs 03/30/24 07/19/24 Rx release furosemide 40 mg tablet (Lasix) 40 mg PO DAILY 7 days #7 tabs 07/05/24 07/19/24 Rx spironolactone 50 mg tablet 50 mg PO DAILY 1 month #30 tabs 07/21/24 07/21/24 Rx Allergies Allergy/AdvReac Type Severity Reaction Status Date / Time lisinopril AdvReac Intermediate cough Verified 07/28/24 08:38 Vital Signs Vital Signs - 24 hr 07/28/24 09:07 07/28/24 09:08 07/28/24 09:09 Temperature 33.1 C L Pulse Rate 41 L 42 L Respiratory Rate 12 Blood Pressure 95/68 L Pulse Oximetry 90 90 Oxygen Delivery Nasal Cannula Oxygen Flow Rate 4 07/28/24 09:23 07/28/24 10:27 07/28/24 10:33 Temperature 33.2 C L 33.2 C L 33.2 C L Pulse Rate 51 L 48 L Respiratory Rate 15 15 Blood Pressure 87/28 L 90/49 L Pulse Oximetry 95 95 Oxygen Delivery Oxygen Flow Rate 07/28/24 11:45 Temperature 33.4 C L Pulse Rate 49 L Respiratory Rate 14 Blood Pressure 79/44 L Pulse Oximetry 95 Oxygen Delivery Oxygen Flow Rate Exam Narrative: General: Pt is old frail female was partially confused Lungs/Chest: Breath sounds are decreased on right base crackles on left base Cardiac: Bradycardia regular rate and rhythm. Normal S1 S2. Systolic murmur 3/6 present Circulation: Feet are cold Abdomen: Nontender, midline incision scar from past surgery distended Extremities: Bilateral extensive pitting edema with weeping extending up to thighs : Simental in place Neurologic: Follows commands. Moves all 4 extremities PERRL AO x1 Skin: No Rash Results Labs 07/28/24 10:16 07/28/24 09:47 Labs: Impressions Head CT 07/28/24 11:09 IMPRESSION: No acute intracranial findings. Chest X-Ray 07/28/24 11:17 IMPRESSION: Right basilar atelectasis versus pneumonia with pleural effusion. Short CBC 07/28/24 Range/Units 10:16 WBC 6.1 (4.5-10.0) K/mm3 Hgb 7.1 L (12.0-15.0) g/dL Hct 23.8 L (37.0-47.0) % Plt Count 94 L (150-375) k/mm3 BMP 07/28/24 09:47 Sodium 136 L Potassium 7.1 H* Chloride 121 H Carbon Dioxide < 5 L BUN 40 H D Creatinine 4.67 H Glucose 86 Calcium 8.0 L Liver Function 07/28/24 Range/Units 09:47 Total Bilirubin 1.3 (0.2-1.3) mg/dL AST 67 H (14-36) U/L ALT 28 (6-35) U/L Alkaline Phosphatase 281 H (38-126) U/L Albumin 2.3 L (3.5-5.1) g/dL Urine 07/28/24 Range/Units 09:17 Urine Color Dark yellow (Yellow) Urine Appearance Turbid H (Clear) Urine pH 5.0 (5.0-9.0) Ur Specific [place] 1.022 (1.001-1.035) Urine Protein 3+ H (Negative) mg/dL Urine Glucose (UA) Trace H (Negative) mg/dL ECG Interpretation: Sinus bradycardia with heart rate 30 Quality VTE Prophylaxis VTE prophylaxis: mechanical ordered Hospitalist MIPS Advance Care Plan I have confirmed that the patient's Advanced Care Plan is present, code status is documented, or surrogate decision maker is listed in patient medical record.: Yes Medication Reconciliation I have utilized all available resources to obtain, update and review the patients current medications (includes all prescriptions, OTC, herbals, cannabis, and nutritional supplements).: Yes
--- NOTE | 2024-07-28 12:43 | P.HP_ITS ---
H&P: HPI History of Present Illness Date/Time: 07/28/24 12:43 Chief Complaint: ALMITA Narrative: 89-year-old female past medical history of non alcoholic liver disease, anasarca, hepatic encephalopathy, thrombocytopenia presents the hospital for abnormal labs and AMLITA. Patient had a planned CT with contrast today her lab work showed a creatinine above 4. So she presented to the ED for workup. On assessment patient is awake alert to self. Lab work shows anemia at 7.1, sodium of 136, potassium was 7.1, chloride of 121, carbon dioxide less than 5, BUN of 40, creatinine of 4.67 with baseline being 2.2, lactic acid of 3, calcium 8 AST of 67, alkaline phos of 281. UA shows 1+ leukocyte esterase, RBCs. CT of her chest abdomen and pelvis show large right pleural effusion with near complete collapse of lower lobe, moderate abdominal pelvic ascites, anasarca, 11 mm left adrenal nodule. Due to patient needing dialysis, thoracentesis, symptomatic bradycardia, central line for blood pressure, hypothermia with poor prognosis. Family had a meeting with the ICU attending. After long family discussion with telephone station repairer and the patient's family has decided to move to comfort care only. Review of Systems Review of Systems: ROS unobtainable: Yes unobtainable due to mental status [facility] Past Medical History Medical History (Updated 07/28/24 @ 23:51 by Estrella Desai, MANDEEP) Primary biliary cirrhosis Hepatic encephalopathy Thrombocytopenia Rectal bleeding History of arteriovenous malformation (AVM) AVM (arteriovenous malformation) Iron deficiency anemia GAVE (gastric antral vascular ectasia) Abdominal distension Hypoalbuminemia Hepatic fibrosis GERD (gastroesophageal reflux disease) Osteoporosis Chronic heart failure with preserved ejection fraction (HFpEF) Dr. Floyd, hand mexican food maker Mild aortic stenosis Paroxysmal A-fib HTN (hypertension) Elevated liver enzymes Surgical History Surgical History History of appendectomy History of surgery of liver History of total hysterectomy with bilateral salpingo-oophorectomy (BSO) History of left atrial appendage closure 05/06/22 Family History Family History Mother Cerebrovascular accident Family history of malignant neoplasm of breast in first degree relative Father Acute myocardial infarction Other Diabetes mellitus Hypertension Social History Social History Social History: 04/15/24 somewhat confident with medical forms Smoking status: Never smoker Alcohol intake: never Substance use: never Substance use type: does not use Do You Feel Safe in your Home?: Yes Lack of Transportation: No Lack of Food: Never True Current Housing: I Have Housing Concerned About Future Housing: No Difficulty Paying Gas/Electric Bills: No Difficulty Paying for Meds: No Currently Unemployed: No Education: High School Diploma/GED Difficulty w/ Childcare or Family Care: No Living arrangements: alone Occupation/Education: retired Gender identity (if verbalized by the patient): Female Sexual Orientation (if Verbalized by the Patient): Straight or Heterosexual Spiritual care concerns: No Meds Home Medications and Allergies Home Medications ?Medication ?Instructions ?Recorded ?Confirmed ?Type cetirizine 10 mg tablet (Zyrtec) 10 mg PO DAILY PRN Allergy Symptoms 10/25/21 07/19/24 History sotalol 80 mg tablet (Betapace) 40 mg PO BID 10/25/21 07/19/24 History potassium chloride 10 mEq 20 meq (2 x 10 mEq) PO BID #360 03/17/22 07/19/24 Rx tablet,extended release tabs prednisone 10 mg tablet 10 mg PO DAILY PRN allergy 06/22/23 07/19/24 Rx symptoms #30 tabs calcium 600 mg (as 1 cap PO BID 09/07/23 07/19/24 History carbonate)-vitamin D3 10 mcg (400 unit) capsule mupirocin 2 % topical ointment 1 applic topical BID #22 grams 10/21/23 07/19/24 Rx alendronate 70 mg tablet (Fosamax) 70 mg PO WEEKLY #12 tabs 02/11/24 07/19/24 Rx losartan 25 mg tablet 25 mg PO DAILY #90 tabs 02/11/24 07/19/24 Rx ferrous sulfate 325 mg (65 mg 325 mg PO DAILY #90 tabs 03/15/24 07/19/24 Rx iron) tablet (FeroSul) pantoprazole 40 mg tablet,delayed 40 mg PO QAM #90 tabs 03/30/24 07/19/24 Rx release furosemide 40 mg tablet (Lasix) 40 mg PO DAILY 7 days #7 tabs 07/05/24 07/19/24 Rx spironolactone 50 mg tablet 50 mg PO DAILY 1 month #30 tabs 07/21/24 07/21/24 Rx ursodiol 400 mg capsule 400 mg PO BID 1 month #60 caps 07/28/24 Rx Allergies Allergy/AdvReac Type Severity Reaction Status Date / Time lisinopril AdvReac Intermediate cough Verified 07/28/24 08:38 Vital Signs Vital Signs - 24 hr 07/28/24 09:07 07/28/24 09:08 07/28/24 09:09 Temperature 91.5 F L Pulse Rate 41 L 42 L Respiratory Rate 12 Blood Pressure 95/68 L Pulse Oximetry 90 90 Oxygen Delivery Nasal Cannula Oxygen Flow Rate 4 07/28/24 09:23 07/28/24 10:27 07/28/24 10:33 Temperature 91.8 F L 91.7 F L 91.7 F L Pulse Rate 51 L 48 L Respiratory Rate 15 15 Blood Pressure 87/28 L 90/49 L Pulse Oximetry 95 95 Oxygen Delivery Oxygen Flow Rate 07/28/24 11:45 Temperature 92.2 F L Pulse Rate 49 L Respiratory Rate 14 Blood Pressure 79/44 L Pulse Oximetry 95 Oxygen Delivery Oxygen Flow Rate Exam Narrative: General: Ill-appearing HEENT: normocephalic, atraumatic. Mucous membranes dry. EOMI, PERRLA, bilateral sclera anicteric, no conjunctival injection. Neck supple without JVD, lymphadenopathy, or bruit. Respiratory: Diminished to ascultation bilaterally. No rales/rhonic/wheezes. Cardiovascular: Regular rate and rhythm, normal S1-S2 upon ascultation. No murmurs, rubs, or clicks. PMI is nondisplaced, capillary refill less than 3 second. Abdomen: Firm abdomen and start cath Extremities: No cyanosis, clubbing, Pulses are palpable 2/2. Able move upper extremities easily, anasarca 0+ [address] up to abdomen Neuro: Alert and orientated x 1. PERRLA. Cranial nerves 2-12 intact without focal deficit. Skin: Warm, dry, and intact, without rash, erythema, or lesion. Psych: pleasant, cooperative, normal speech, normal affect, no hallucinations, no dysarthia H&P: Results Labs Labs: Short CBC 07/28/24 Range/Units 10:16 WBC 6.1 (4.5-10.0) K/mm3 Hgb 7.1 L (12.0-15.0) g/dL Hct 23.8 L (37.0-47.0) % Plt Count 94 L (150-375) k/mm3 BMP 07/28/24 09:47 Sodium 136 L Potassium 7.1 H* Chloride 121 H Carbon Dioxide < 5 L BUN 40 H D Creatinine 4.67 H Glucose 86 Calcium 8.0 L Liver Function 07/28/24 Range/Units 09:47 Total Bilirubin 1.3 (0.2-1.3) mg/dL AST 67 H (14-36) U/L ALT 28 (6-35) U/L Alkaline Phosphatase 281 H (38-126) U/L Albumin 2.3 L (3.5-5.1) g/dL Urine 07/28/24 Range/Units 09:17 Urine Color Dark yellow (Yellow) Urine Appearance Turbid H (Clear) Urine pH 5.0 (5.0-9.0) Ur Specific [place] 1.022 (1.001-1.035) Urine Protein 3+ H (Negative) mg/dL Urine Glucose (UA) Trace H (Negative) mg/dL Assessment and Plan Assessment and plan (1) Chronic heart failure with preserved ejection fraction (HFpEF): Code(s): I50.32 - Chronic diastolic (congestive) heart failure Status: Acute (2) Hyponatremia: Code(s): E87.1 - Hypo-osmolality and hyponatremia Status: Acute (3) Thrombocytopenia: Code(s): D69.6 - Thrombocytopenia, unspecified Status: Acute (4) Acute renal failure: Code(s): N17.9 - Acute kidney failure, unspecified Status: Acute (5) Acute hyperkalemia: Code(s): E87.5 - Hyperkalemia Status: Acute (6) Acute UTI: Code(s): N39.0 - Urinary tract infection, site not specified Status: Acute (7) Anemia: Code(s): D64.9 - Anemia, unspecified Status: Acute (8) Hypoalbuminemia: Code(s): E88.09 - Other disorders of plasma-protein metabolism, not elsewhere classified Status: Acute (9) Hypoxia: Code(s): R09.02 - Hypoxemia Status: Acute (10) Acute kidney injury: Code(s): N17.9 - Acute kidney failure, unspecified Status: Acute (11) Pleural effusion: Code(s): J90 - Pleural effusion, not elsewhere classified Status: Acute (12) Lactic acid acidosis: Code(s): E87.20 - Acidosis, unspecified Status: Acute Plan Patient has been made comfort care by family Ativan, morphine, and atropine drops ordered Family at bedside
[2024-07-28 13:04] LABS: MRSA (PCR). NOT DETECTED (NOT DETECTE)
[2024-07-28 14:27] LABS: Anion Gap 7 mmol/L (4-12); Blood Urea Nitrogen 40 mg/dL (7-17); Calcium 8.9 mg/dL (8.4-10.2); Carbon Dioxide 10 mmol/L (22-30); Chloride 122 mmol/L (98-107); Estimated CRCL calculation 7 ml/min; Estimated Glomerular Filt Rate 9; Glucose 86 mg/dL (65-110); Potassium 6.1 mmol/L (3.4-5.0); Sodium 139 mmol/L (137-145)
--- NOTE | 2024-07-28 14:31 | PC.NURSE ---
Family at bedside. Had family meeting with Dr. Gomez. Decide on comfort care for patient.
--- NOTE | 2024-07-28 15:18 | PC.NURSE ---
1250 This patient, Marsha Canales, was admitted to Intensive Care Unit-7. Patient/family oriented to hospital policies and general routines including ID bracelet, bed and alarms, visiting hours, pain management, procedures, bathroom and other care routines, personal items, smoking policy, room service/diet, and visiting hours. Information on how to activate the Rapid Response Team has been discussed. Patient/Family are encouraged to report perceived risks to care and to ask questions if they do not understand what they are told or what they should do.
[2024-07-28] MEDS: LORazepam INJ (*CRX) 2 MG/ML VIAL 0.5 MG IV PUSH (19:41)
[2024-07-28] MEDS: MORPHINE SULFATE (*CRX) 2 MG/ML INJ IV PUSH (20:20)
[2024-07-28] MEDS: LORazepam INJ (*CRX) 2 MG/ML VIAL 1 MG IV PUSH (20:49)
[2024-07-29] VITALS: BP 72/27; PULSE 38; RESP 14; TEMP 34; O2SAT 84
[2024-07-29] MEDS: LORazepam INJ (*CRX) 2 MG/ML VIAL 1 MG IV PUSH (00:17)
--- NOTE | 2024-07-29 03:53 | PC.NURSE ---
Patient without pulse or respirations. TOD 0325. Nadia, nurse discharge nurse notified. Call placed to daughter Lona and son is at bedside.
--- NOTE | 2024-08-11 13:02 | P.DN_ITS ---
Discharge Summary Date and Time Date of : 07/29/24 Time of : 03:25 Provider Pronounced By: 2 RNs Name of First RN That Pronounced: Nadia Mosley RN Name of Second RN That Pronounced: Ai Franklin RN Probable Cause of Probable Cause of : Urosepsis Summary Hospital Course: 89-year-old female past medical history of non alcoholic liver disease, anasarca, hepatic encephalopathy, thrombocytopenia presents the hospital for abnormal labs and ALMITA. Patient had a planned CT with contrast today her lab work showed a creatinine above 4. So she presented to the ED for workup. On assessment patient is awake alert to self. Lab work shows anemia at 7.1, sodium of 136, potassium was 7.1, chloride of 121, carbon dioxide less than 5, BUN of 40, creatinine of 4.67 with baseline being 2.2, lactic acid of 3, calcium 8 AST of 67, alkaline phos of 281. UA shows 1+ leukocyte esterase, RBCs. CT of her chest abdomen and pelvis show large right pleural effusion with near complete collapse of lower lobe, moderate abdominal pelvic ascites, anasarca, 11 mm left adrenal nodule. Due to patient needing dialysis, thoracentesis, symptomatic bradycardia, central line for blood pressure, hypothermia with poor prognosis. Family had a meeting with the ICU attending. After long family discussion with measurement specialist and the patient's family has decided to move to comfort care only. Patient passed peacefully with family at bedside Additional Data Confirmation of as documented by pronouncing clinician: Pupillary Reflex, Palpable Pulses, Response to Stimuli, Heart Tones and Breath Sounds Name of Provider Notified: Dr. Villatoro Time Provider Notified: 03:45 Provider Requests Autopsy: No Family Requests Autopsy: No Edi Analyst Notified: Yes Date [facility] Notified of : 07/29/24 Time [facility] Notified of : 04:40
== END 2024-07-29 03:45 | disposition expired | DRG 872 ==
LOC: ANHED 11:29 → ANHICU 08-02 10:58
PROVIDERS: Internal Medicine; Admitting Provider Internal Medicine; Emergency Provider Emergency Medicine; PCP Physician Assistant Medical; Visit Provider Nurse Practitioner Gerontology
DX: A41.9 Sepsis, unspecified organism (principal); N17.9 Acute kidney failure, unspecified; N39.0 Urinary tract infection, site not specified; E87.21 Acute metabolic acidosis; I50.32 Chronic diastolic (congestive) heart failure; E87.1 Hypo-osmolality and hyponatremia; J90 Pleural effusion, not elsewhere classified; I13.0 Hypertensive heart and chronic kidney disease with heart failure and stage 1 through stage 4 chronic kidney disease, or unspecified chronic kidney disease; N18.9 Chronic kidney disease, unspecified; K75.81 Nonalcoholic steatohepatitis (NASH); D35.02 Benign neoplasm of left adrenal gland; E87.5 Hyperkalemia; D50.9 Iron deficiency anemia, unspecified; K21.9 Gastro-esophageal reflux disease without esophagitis; D69.6 Thrombocytopenia, unspecified; R09.02 Hypoxemia; M81.0 Age-related osteoporosis without current pathological fracture; I35.0 Nonrheumatic aortic (valve) stenosis; K76.82 Hepatic encephalopathy; I48.0 Paroxysmal atrial fibrillation; E27.9 Disorder of adrenal gland, unspecified; Z90.49 Acquired absence of other specified parts of digestive tract; Z90.710 Acquired absence of both cervix and uterus; K74.60 Unspecified cirrhosis of liver
CPT/HCPCS: 36415; 70450; 71045; 71250; 74176; 80048; 80053; 81001; 82140; 82948; 83605; 85025; 85055; 85610; 85730; 87040; 87641; 93005; 96361; 96374; 96375; 99285; A9270; J0461; J0696; J1815; J2060; J2270; J7040